=== PATIENT | male | born 1980 | race Caucasian/White ===

== ENCOUNTER 2017-10-28 23:27 | Emergency (ER) | payer OTHER | END 2017-10-29 01:41 | disposition other institution (70) | LOC: ED 23:27 | DX: Z02.89 Encounter for other administrative examinations (principal); S01.81XA Laceration without foreign body of other part of head, initial encounter; W22.8XXA Striking against or struck by other objects, initial encounter; Y93.89 Activity, other specified; Y99.8 Other external cause status; Y92.89 Other specified places as the place of occurrence of the external cause ==

== ENCOUNTER 2017-10-28 23:27 | Emergency (ER) | payer SELFPAY ==
[~2017-10-28] VITALS: Ht 182.9 cm; Wt 113.4 kg
[2017-10-28 23:58] VITALS: Ht 182.9 cm; Wt 113.4 kg
[2017-10-29 01:41] VITALS: BP 104/57
== END 2017-10-29 01:41 | disposition other institution (70) ==
LOC: ED 23:27
DX: S01.81XA Laceration without foreign body of other part of head, initial encounter (principal); W22.8XXA Striking against or struck by other objects, initial encounter; Y93.89 Activity, other specified; Y99.8 Other external cause status; Y92.89 Other specified places as the place of occurrence of the external cause
CPT/HCPCS: 90715; J2001